=== PATIENT | female | born 1960 | race Caucasian/White ===

== ENCOUNTER 2016-08-06 13:22 | Inpatient (IN) | payer OTHER ==
--- NOTE | 2016-08-06 14:00 | EDPHY ---
HPI/HX/ROS/PE/MDM Narrative: CHIEF COMPLAINT: Abdominal pain, Hematochezia. HISTORY OF PRESENT ILLNESS: The patient is a 55-year-old female presenting with abdominal pain and hematochezia. The patient reports lower abdominal pain and discomfort for the past 12 hours. Around 8 a.m. she started having bloody diarrhea. Earlier in the night she had stool, but now only has bloody liquid. She has associated nausea secondary to the abdominal pain, no associated emesis. She had a low grade fever of 99 at home with chills. She denies chest pain or shortness of breath. Patient has no history of ulcerative colitis. She denies vaginal bleeding. Last menstruation was in March. The patient had a recent colonoscopy and was found to have diverticula. REVIEW OF SYSTEMS: Aside from elements discussed in the HPI, a comprehensive 10-point review of systems was reviewed and is negative. PAST MEDICAL HISTORY: Right oophorectomy, tubal ligation. SOCIAL HISTORY: Nonsmoker. Drinks red wine. Occasional marijuana use. and PCP are at bedside. VITAL SIGNS: Reviewed by me GENERAL: Well-developed, well-nourished, reporting moderated discomfort in abdomen. Laying on side. HEENT: Atraumatic. Eyes: No icterus, no injection. Mouth: moist mucous membranes. No erythema or lesions. Neck: supple with no adenopathy. LUNGS: Clear to auscultation bilaterally, no wheezes, rhonchi or rales. CARDIAC: Regular rate and rhythm, no rubs, murmurs or gallops. ABDOMEN: Exquisite left sided tenderness with voluntary guarding in left lower quadrant. RECTAL: No hemorrhoids, no fissures. Red blood on glove. No stool in vault. BACK: No CVA tenderness. EXTREMITIES: No trauma. No edema. Range of motion is normal throughout. NEURO: Alert and oriented, grossly nonfocal. SKIN: Warm and dry, no rash. PSYCHIATRIC: Normal mentation, no agitation. Portions of this note were transcribed by a medical records field technician. I personally performed a history, physical exam, medical decision making, and confirmed accuracy of information the transcribed note. ED Course: Patient presents with 12 hours of severe abdominal pain and hematochezia that started at 8 a.m. On rectal exam patient does not have hemorrhoids or fissures. There is red blood on the glove, no stool. Plan to check for sepsis due to history of recent fever. Blood work and lactic acid were ordered. IV was established, patient received IV Dilaudid and Zofran for pain and nausea. Patient has a white count of 17,000. Chemistries are essentially normal. CT scan is significant for colitis, no diverticulitis. Sepsis Evaluation Note: The patient presents to the ED with potential infection identified as diverticulitis. The patient did [not] have evidence of SIRS. Patient did not have evidence of end-organ dysfunction. Plan to admit the patient. I discussed this with the patient. She agrees with the plan. She is feeling better after the Dilaudid. I spoke to the hospitalist, the patient will be admitted to Dr. Ferguson. MDM: After obtaining the patients history and performing an examination, differential diagnosis considered included but was not limited to diverticulitis , colitis, diverticular bleeding, c difficle, gi hemorrhage, colon cancer, upper gi hemorrhage. - Data Points Imaging Results: Imaging Impressions Abdomen CT 08/06/16 14:05 Impression: 1. Diffuse thickening of the descending and proximal sigmoid colon suggesting colitis, with a small amount of pericolic fluid with no visible perforation or abscess. Diverticula are present in the region, however, the extent is suggestive of colitis. 2. Lung nodules measuring up to 5 mm. In a nonsmoker with no cancer history, no further follow up is recommended per Fleischner Society guidelines. In a smoker or a patient with a history of cancer, follow up CT is considered optional in 12 months. 3. Additional findings as above. Findings discussed with Ave Aguillon MD, 08/06/2016 at 1614 hours. Imaging: Discussed imaging studies w/ inbound call center agent Radiologist Laboratory Results: Laboratory Results 08/06/16 14:05 08/06/16 14:05 08/06/16 08/06/16 08/06/16 16:38 14:08 14:05 WBC RBC Hgb Hct MCV MCH MCHC RDW Plt Count MPV Neut % (Auto) Lymph % (Auto) [place] % (Auto) Eos % (Auto) Baso % (Auto) Nucleat RBC Rel Count Absolute Neuts (auto) Absolute Lymphs (auto) Absolute Monos (auto) Absolute Eos (auto) Absolute Basos (auto) Absolute Nucleated RBC Immature Gran % Immature Gran # PT 13.3 SEC SEC (12.0-15.0) INR 1.02 (0.83-1.16) APTT 22.9 SEC L SEC (23.0-38.0) VBG Lactic Acid 1.4 mmol/L mmol/L (0.7-2.1) Sodium Potassium Chloride Carbon Dioxide Anion Gap BUN Creatinine Estimated GFR Glucose Calcium Total Bilirubin Conjugated Bilirubin Unconjugated Bilirubin AST ALT Alkaline Phosphatase Total Protein Albumin Lipase Urine Color PALE YELLOW Urine Appearance CLEAR Urine pH 5.0 (5.0-7.5) Ur Specific Meta > 1.035 H (1.002-1.030) Urine Protein NEGATIVE (NEGATIVE) Urine Ketones 1+ H (NEGATIVE) Urine Blood NEGATIVE (NEGATIVE) Urine Nitrate NEGATIVE (NEGATIVE) Urine Bilirubin NEGATIVE (NEGATIVE) Urine Urobilinogen NEGATIVE EU EU (0.2-1.0) Ur Leukocyte Esterase NEGATIVE (NEGATIVE) Urine Glucose NEGATIVE (NEGATIVE) 08/06/16 08/06/16 14:05 14:05 WBC 17.10 10^3/uL H 10^3/uL (3.80-9.50) RBC 5.11 10^6/uL 10^6/uL (4.18-5.33) Hgb 12.2 g/dL L g/dL (12.6-16.3) Hct 38.7 % % (38.0-47.0) MCV 75.7 fL L fL (81.5-99.8) MCH 23.9 pg L pg (27.9-34.1) MCHC 31.5 g/dL L g/dL (32.4-36.7) RDW 15.7 % H % (11.5-15.2) Plt Count 333 10^3/uL 10^3/uL (150-400) MPV 10.5 fL fL (8.7-11.7) Neut % (Auto) 90.1 % H % (39.3-74.2) Lymph % (Auto) 5.3 % L % (15.0-45.0) [place] % (Auto) 3.7 % L % (4.5-13.0) Eos % (Auto) 0.0 % L % (0.6-7.6) Baso % (Auto) 0.3 % % (0.3-1.7) Nucleat RBC Rel Count 0.0 % % (0.0-0.2) Absolute Neuts (auto) 15.40 10^3/uL H 10^3/uL (1.70-6.50) Absolute Lymphs (auto) 0.90 10^3/uL L 10^3/uL (1.00-3.00) Absolute Monos (auto) 0.64 10^3/uL 10^3/uL (0.30-0.80) Absolute Eos (auto) 0.00 10^3/uL L 10^3/uL (0.03-0.40) Absolute Basos (auto) 0.05 10^3/uL 10^3/uL (0.02-0.10) Absolute Nucleated RBC 0.00 10^3/uL 10^3/uL (0-0.01) Immature Gran % 0.6 % % (0.0-1.1) Immature Gran # 0.11 10^3/uL H 10^3/uL (0.00-0.10) PT INR APTT VBG Lactic Acid Sodium 139 mEq/L mEq/L (134-144) Potassium 4.3 mEq/L mEq/L (3.5-5.2) Chloride 102 mEq/L mEq/L (97-110) Carbon Dioxide 24 mEq/l mEq/l (22-31) Anion Gap 13 mEq/L mEq/L (8-16) BUN 10 mg/dL mg/dL (7-23) Creatinine 0.7 mg/dL mg/dL (0.6-1.0) Estimated GFR > 60 Glucose 95 mg/dL mg/dL (70-100) Calcium 9.6 mg/dL mg/dL (8.5-10.4) Total Bilirubin 0.8 mg/dL mg/dL (0.1-1.4) Conjugated Bilirubin 0.4 mg/dL mg/dL (0.0-0.5) Unconjugated Bilirubin 0.4 mg/dL mg/dL (0.0-1.1) AST 39 IU/L IU/L (14-46) ALT 34 IU/L IU/L (9-52) Alkaline Phosphatase 83 IU/L IU/L (38-126) Total Protein 7.5 g/dL g/dL (6.3-8.2) Albumin 4.6 g/dL g/dL (3.5-5.0) Lipase 64.0 IU/L IU/L (23-300) Urine Color Urine Appearance Urine pH Ur Specific Meta Urine Protein Urine Ketones Urine Blood Urine Nitrate Urine Bilirubin Urine Urobilinogen Ur Leukocyte Esterase Urine Glucose Medications Given: Discontinued Medications Hydromorphone HCl (Dilaudid) 1 mg IVP EDNOW ONE Stop: 08/06/16 14:06 Last Admin: 08/06/16 14:28 Dose: 1 mg Hydromorphone HCl (Dilaudid) 1 mg IVP EDNOW ONE Stop: 08/06/16 16:54 Last Admin: 08/06/16 17:03 Dose: Not Given Sodium Chloride (Ns) 1,500 mls @ 3,000 mls/hr 30 ml/kg infuse over 30 min ( 1500 ml) IV EDNOW ONE Stop: 08/06/16 14:35 Last Admin: 08/06/16 14:28 Dose: 1,500 mls Ondansetron HCl (Zofran) 4 mg IVP EDNOW ONE Stop: 08/06/16 14:06 Last Admin: 08/06/16 14:30 Dose: 4 mg General Time Seen by Provider: 08/06/16 13:49 Initial Vital Signs: Initial Vital Signs Temperature (C) 36.8 C 08/06/16 13:24 Heart Rate 72 08/06/16 13:24 Respiratory Rate 18 08/06/16 13:24 Blood Pressure 128/74 H 08/06/16 13:24 O2 Sat (%) 96 08/06/16 13:24 O2 Delivery Mode Room Air O2 (L/minute) 2 Allergies/Adverse Reactions: No Known Allergies Allergy (Unverified 08/06/16 13:24) Home Medications: Medication Instructions Recorded Herbals/Supplements -Info Only 1 ea PO DAILY 08/06/16 Zolpidem Tartrate [Ambien 10 mg] 5 - 10 mg PO HS PRN 08/06/16 Departure - Departure Disposition: [facility] Clinical Impression: Abdominal pain, Colitis, Lower GI hemorrhage, Diarrhea Condition: Good Report Scribed for: Ave Aguillon Report Scribed by: Lakeisha Ac Date of Report: 08/06/16 Time of Report: 14:06
[2016-08-06] MEDS ORDERED: ONDANSETRON 4 MG/2 ML VIAL ONE ×2 (14:02→16:47)
[2016-08-06] MEDS ORDERED: HYDROmorphONE/DILAUDID 1 MG/ML SYR ONE ×2 (14:02→16:44)
[2016-08-06] MEDS ORDERED: ONDANSETRON 4 MG/2 ML VIAL IVP ONE ×2 (14:05→16:53)
[2016-08-06] MEDS ORDERED: HYDROmorphONE/DILAUDID 1 MG/ML SYR IVP ONE ×3 (14:05→17:05)
[2016-08-06] MEDS ORDERED: NS 1,500 ML IV ONE (14:06)
[2016-08-06 14:16] LABS: % IMMATURE GRANULYOCYTES 0.6 % (0.0-1.1); ABSOLUTE IMMATURE GRANULOCYTES 0.11 10^3/uL (0.00-0.10); ADD DIFF? NO; ADD MORPH? NO; ADD SCAN? NO; ATYPICAL LYMPHOCYTE FLAG 0 (0-99); FRAGMENT RBC FLAG 0 (0-99); HEMATOCRIT 38.7 % (38.0-47.0); HEMOGLOBIN 12.2 g/dL (12.6-16.3); LEFT SHIFT FLG 20 (0-99); LIPEMIA HEMOLYSIS FLAG 80 (0-99); MEAN CELL HEMOGLOBIN 23.9 pg (27.9-34.1); MEAN CELL HEMOGLOBIN CONCENTR. 31.5 g/dL (32.4-36.7); MEAN CELL VOLUME 75.7 fL (81.5-99.8); MEAN PLATELET VOLUME 10.5 fL (8.7-11.7); PLATELET CLUMPS FLAG 10 (0-99); PLATELET COUNT 333 10^3/uL (150-400); RED BLOOD CELL COUNT 5.11 10^6/uL (4.18-5.33); RED CELL DISTRIBUTION WIDTH 15.7 % (11.5-15.2)
[2016-08-06 14:26] LABS: APTT 22.9 SEC (23.0-38.0)
[2016-08-06 14:35] LABS: INR 1.02 (0.83-1.16); PROTIME(PATIENT) 13.3 SEC (12.0-15.0)
[2016-08-06] MEDS ORDERED: IOPAMIDOL (ISOVUE-300) 100 ML BTL IV ONE (14:41)
[2016-08-06 14:42] LABS: ALANINE AMINOTRANSFERASE 34 IU/L (9-52); ALBUMIN 4.6 g/dL (3.5-5.0); ALKALINE PHOSPHATASE 83 IU/L (38-126); ANION GAP 13 mEq/L (8-16); ASPARTATE AMINOTRANSFERASE 39 IU/L (14-46); BILIRUBIN,TOTAL 0.8 mg/dL (0.1-1.4); BILIRUBIN-CONJUGATED 0.4 mg/dL (0.0-0.5); BILIRUBIN-UNCONJUGATED 0.4 mg/dL (0.0-1.1); CALCIUM 9.6 mg/dL (8.5-10.4); CARBON DIOXIDE 24 mEq/l (22-31); CHLORIDE 102 mEq/L (97-110); CREATININE 0.7 mg/dL (0.6-1.0); GLOMERULAR FILTRATION RATE > 60; GLUCOSE 95 mg/dL (70-100); POTASSIUM 4.3 mEq/L (3.5-5.2); SODIUM 139 mEq/L (134-144); TOTAL PROTEIN 7.5 g/dL (6.3-8.2)
[2016-08-06 16:47] LABS: COLOR PALE YELLOW; LEUKOCYTE ESTERASE,URINE NEGATIVE (NEGATIVE); NITRITE,URINE NEGATIVE (NEGATIVE)
[2016-08-06] MEDS ORDERED: ONDANSETRON DISINTEGRATING 4 MG TAB PO PRN (17:27)
[2016-08-06] MEDS ORDERED: ACETAMINOPHEN 325 MG TAB PO PRN (17:27)
[2016-08-06] MEDS ORDERED: IBUPROFEN 600 MG TAB PO PRN (17:27)
--- NOTE | 2016-08-06 18:15 | GHP ---
[f rep st] HISTORY AND PHYSICAL DATE OF ADMISSION: 08/06/2016 CHIEF COMPLAINT: Abdominal pain and bloody diarrhea. HISTORY: This is a 55-year-old female with essentially no past medical history who presents with se veral days of left lower quadrant abdominal pain along with diarrhea that then progressed to be bloo dy. She notes she has had significant abdominal cramping since yesterday and then over the course o f the night, what began as diarrhea progressed to bloody diarrhea and then to simply passage of most ly blood. She had a low-grade fever at home with associated chills. She has not had any vomiting b ut has had some nausea. She has had no chest pain, no shortness of breath. She has had no urinary changes. She has never had prior similar symptoms. She has not been around anybody sick. She has not had any recent travel. PAST MEDICAL HISTORY: Denies. PAST SURGICAL HISTORY: Right oophorectomy and tubal ligation. SOCIAL HISTORY: The patient is a nonsmoker. She drinks wine socially. She uses marijuana occasion ally. She is and has 2 sons. REVIEW OF SYSTEMS: 10-point review of systems obtained and negative except as per HPI. HOME MEDICATIONS: None. ALLERGIES: None. PHYSICAL EXAMINATION: VITAL SIGNS: BP 100/61, heart rate 61, respiratory rate 16, O2 sats 92% on r oom air. Afebrile. GENERAL APPEARANCE: This is a well-developed, well-nourished female. She is a wake and alert. She is in no acute distress. EYES: Anicteric. HENT: Oropharynx clear. CARDIOVA SCULAR: RRR, no MRG. PULMONARY: CTA bilaterally. ABDOMEN: Soft, tenderness to palpation diffuse ly. No rebound or guarding. EXTREMITIES: No clubbing, cyanosis, or edema. SKIN: Warm, dry, well perfused. NEURO/PSYCH: Oriented and appropriate, pleasant. CLINICAL DATA: Labs reviewed and significant for a white blood cell count of 17.1, hematocrit of 38 .7, platelets of 333. Lactic acid is 1.4. Chemistry is completely unremarkable as are liver functi on tests. Urinalysis shows 1+ ketones. Stool occult blood is positive. Abdominal CT personally reviewed and interpreted shows diffuse thickening of the descending and prox imal sigmoid colon suggesting colitis without perforation or abscess. There are nonspecific lung no dules measuring up to 5 mm. ASSESSMENT/PLAN: This is a 55-year-old female with no past medical history presenting with abdomina l pain and bloody diarrhea. CT findings suggestive of colitis. 1. Colitis. This is presumed infectious given the history. She is having significant cramping abd ominal pain along with bloody stool output. A GI pathogen panel has been ordered and is pending. S he will be treated conservatively with IV fluids and antiemetics and opiates as needed. We will hol d off on antibiotics for now given that she is not septic appearing. 2. Hematochezia. Again, this is in the setting of what appears to be an infectious colitis and lik titus secondary to the same. She is hemodynamically stable. Her H and H are within normal limits. W ill trend counts overnight but so long as bleeding does not increase or anemia develop, I do not thi nk she will need further evaluation for this. 3. Leukocytosis in the setting of above. She does not meet sepsis criteria. Will trend overnight. 4. Lung nodules. These are small and nonspecific. Given the patient is a nonsmoker, there is no f urther followup necessary. 5. Disposition, observation status. Patient will need less than 48-hour stay for evaluation and ma nagement of above. 6. Patient is new to my care. Old records reviewed. Summary is as per HPI and past medical histor y. Further history obtained from patient's present at bedside. Care plan reviewed with the ER physician, including plans for GI pathogen panel to be sent. /[id number]/MODL
[2016-08-06] MEDS ORDERED: ZOLPIDEM TARTRATE 5 MG TAB PO PRN (20:29)
[2016-08-06] MEDS: HYDROCODONE/APAP 5/325 TAB PO PRN (21:06)
[2016-08-06] MEDS: NS 1,000 ML IV SCH (22:34)
[2016-08-07] MEDS: HYDROCODONE/APAP 5/325 TAB PO PRN ×4 (03:14→20:57)
[2016-08-07 05:53] LABS: % IMMATURE GRANULYOCYTES 0.3 % (0.0-1.1); ABSOLUTE IMMATURE GRANULOCYTES 0.04 10^3/uL (0.00-0.10); ADD DIFF? NO; ADD MORPH? NO; ADD SCAN? NO; ATYPICAL LYMPHOCYTE FLAG 0 (0-99); FRAGMENT RBC FLAG 0 (0-99); HEMATOCRIT 33.1 % (38.0-47.0); HEMOGLOBIN 10.4 g/dL (12.6-16.3); LEFT SHIFT FLG 50 (0-99); LIPEMIA HEMOLYSIS FLAG 80 (0-99); MEAN CELL HEMOGLOBIN 23.9 pg (27.9-34.1); MEAN CELL HEMOGLOBIN CONCENTR. 31.4 g/dL (32.4-36.7); MEAN CELL VOLUME 75.9 fL (81.5-99.8); MEAN PLATELET VOLUME 10.6 fL (8.7-11.7); PLATELET CLUMPS FLAG 20 (0-99); PLATELET COUNT 266 10^3/uL (150-400); RED BLOOD CELL COUNT 4.36 10^6/uL (4.18-5.33); RED CELL DISTRIBUTION WIDTH 15.7 % (11.5-15.2)
[2016-08-07 06:02] LABS: ANION GAP 4 mEq/L (8-16); CALCIUM 8.4 mg/dL (8.5-10.4); CARBON DIOXIDE 26 mEq/l (22-31); CHLORIDE 108 mEq/L (97-110); CREATININE 0.7 mg/dL (0.6-1.0); GLOMERULAR FILTRATION RATE > 60; GLUCOSE 91 mg/dL (70-100); POTASSIUM 4.2 mEq/L (3.5-5.2); SODIUM 138 mEq/L (134-144)
[2016-08-07] MEDS: NS 1,000 ML IV SCH (08:40)
[2016-08-07 10:33] LABS: % SATURATION 18 % (20-55); TOTAL IRON BINDING CAPACITY 277 ug/dL (260-490)
[2016-08-07 10:59] LABS: FERRITIN - BCH 34.2 ng/mL (6.2-264.0)
--- NOTE | 2016-08-07 12:16 | GCON ---
[f rep st] CONSULTATION CHIEF COMPLAINT: A 55-year-old woman with acute onset of abdominal pain, diarrhea and hematochezia. HISTORY OF PRESENT ILLNESS: This is a very pleasant 55-year-old woman, who has no significant medical history. She has undergone routine screening colonoscopy about 3 weeks ago with finding of mild diverticulosis and a small colon polyp. She was in her usual state of good health until evening. She had sudden onset of abdominal pain and discomfort. This was followed by several episodes of diarrhea. The following morning, she passed several episodes of bright red blood/hematochezia. She had some chills and sweats. She went into the emergency department. She was found to be slightly anemic with a hematocrit of 33.1, but also had an MCV of 75.9. White count was elevated initially at 17,000. Serum chemistries were normal. CT scan showed inflammatory changes from the sigmoid colon to the splenic flexure. She denies any fevers. She has had no similar symptoms in the past. She denies any NSAID use, no recent travel, no one else is sick at home. She has had no prior similar symptoms. She presents to the hospital for further evaluation. PAST MEDICAL HISTORY: Negative. PAST SURGICAL HISTORY: Remarkable for right shoulder surgery last year. MEDICATIONS: None prior to admission. ALLERGIES: No known drug allergies. FAMILY HISTORY: Negative as it pertains to Chief Complaint. SOCIAL HISTORY: Nonsmoker, nondrinker. REVIEW OF SYSTEMS: Negative 10 systems other than mentioned in HPI. PHYSICAL EXAM: VITAL SIGNS: 106/73, pulse 66, respiratory rate 16, 99% sat on room air, 36.8. GENERAL: Very pleasant woman in no acute distress. HEENT: Normocephalic, atraumatic. EOMI. NECK: Supple. No cervical adenopathy. No thyromegaly. Mucous membranes moist. LUNGS: Clear. CARDIAC: Normal S1, S2 without murmur. ABDOMEN: Soft, normal bowel sounds. Tenderness at left abdomen to palpation. EXTREMITIES: Without clubbing, cyanosis, edema. SKIN: Warm, dry, intact. No rashes. PSYCH: Alert and oriented x3. LABORATORY DATA: Serum sodium 138, potassium 4.2, chloride 108, CO2 of 26, BUN of 7, white count of 12.47, hemoglobin 10.4, hematocrit 33.1, MCV of 75.9, platelets of 266, PT of 13.3, INR of 1.02. IMPRESSION: A 55-year-old woman with clinical presentation consistent with acute ischemic colitis. She is also noted to have microcytic anemia, question iron-deficiency anemia. RECOMMENDATIONS: Supportive care. IV hydration. Clear liquid diet. Will check iron studies, iron TIBC, ferritin. Would recommend a flexible sigmoidoscopy tomorrow for mucosal biopsies to document changes of ischemia/ ischemic colitis. If iron deficient, would recommend upper endoscopy for small bowel biopsies for evaluation of microcytic anemia. Rule out celiac disease. We will follow with you. /[id number]/MODL MTDD
--- NOTE | 2016-08-07 14:43 | HOSPPROG ---
Hospitalist Progress Note Assessment/Plan: * colitis * Uncertain etiology but predominance of pain prior to diarrhea more suggestive of ischemic colitis. * Seems to be getting better * Will get flex sig tomorrow to further evaluate * microcytic anemia * Awaiting iron studies * May need upper endoscopy per GI Subjective: Abdominal pain seems to be better. Not having any bowel movements Objective: Vital Signs Temp Pulse Resp BP Pulse Ox 36.8 C 66 16 106/73 99 08/07/16 08:45 08/07/16 08:45 08/07/16 08:45 08/07/16 08:45 08/07/16 08:45 Laboratory Results 08/07/16 05:41 08/07/16 05:41 08/06/16 08/07/16 08/08/16 05:59 05:59 05:59 Intake Total 1500 Output Total 600 400 Balance 900 -400 PT 13.3 SEC (12.0-15.0) 08/06/16 14:05 INR 1.02 (0.83-1.16) 08/06/16 14:[address] Laguna and Dr. Kraus CT personally viewed interpreted - Physical Exam Constitutional: no apparent distress, appears nourished, not in pain Eyes: anicteric sclera, EOMI Ears, Nose, Mouth, Throat: moist mucous membranes, hearing normal, ears appear normal Cardiovascular: regular rate and rhythym, no murmur, rub, or gallop Respiratory: no respiratory distress, no rales or rhonchi, clear to auscultation Gastrointestinal: normoactive bowel sounds, soft, non-tender abdomen, no palpable masses Skin: warm Neurologic: AAOx3 Psychiatric: interacting appropriately, not anxious, not encephalopathic, thought process linear ICD10 Worksheet Patient Problems: Problems Problem Status Onset Colitis Acute
[2016-08-07] MEDS: D5W 1/2 NS W/ 20 KCl/L 1,000 ML IV SCH (15:22)
[2016-08-08 05:04] LABS: % IMMATURE GRANULYOCYTES 0.3 % (0.0-1.1); ABSOLUTE IMMATURE GRANULOCYTES 0.03 10^3/uL (0.00-0.10); ADD DIFF? NO; ADD MORPH? NO; ADD SCAN? NO; ATYPICAL LYMPHOCYTE FLAG 0 (0-99); FRAGMENT RBC FLAG 0 (0-99); HEMATOCRIT 32.4 % (38.0-47.0); LEFT SHIFT FLG 40 (0-99); LIPEMIA HEMOLYSIS FLAG 80 (0-99); MEAN CELL HEMOGLOBIN 23.8 pg (27.9-34.1); MEAN CELL HEMOGLOBIN CONCENTR. 30.9 g/dL (32.4-36.7); MEAN PLATELET VOLUME 10.4 fL (8.7-11.7); PLATELET CLUMPS FLAG 0 (0-99); PLATELET COUNT 240 10^3/uL (150-400); RED BLOOD CELL COUNT 4.21 10^6/uL (4.18-5.33); RED CELL DISTRIBUTION WIDTH 15.8 % (11.5-15.2)
[2016-08-08] MEDS: HYDROCODONE/APAP 5/325 TAB PO PRN ×3 (05:09→18:16)
[2016-08-08] MEDS: D5W 1/2 NS W/ 20 KCl/L 1,000 ML IV SCH (05:15)
[2016-08-08 05:21] LABS: ALANINE AMINOTRANSFERASE 21 IU/L (9-52); ALBUMIN 3.1 g/dL (3.5-5.0); ALKALINE PHOSPHATASE 49 IU/L (38-126); ANION GAP 5 mEq/L (8-16); ASPARTATE AMINOTRANSFERASE 25 IU/L (14-46); BILIRUBIN,TOTAL 0.7 mg/dL (0.1-1.4); CALCIUM 8.4 mg/dL (8.5-10.4); CARBON DIOXIDE 29 mEq/l (22-31); CHLORIDE 107 mEq/L (97-110); CREATININE 0.7 mg/dL (0.6-1.0); GLOMERULAR FILTRATION RATE > 60; GLUCOSE 93 mg/dL (70-100); POTASSIUM 4.1 mEq/L (3.5-5.2); SODIUM 141 mEq/L (134-144); TOTAL PROTEIN 5.5 g/dL (6.3-8.2)
[2016-08-08] MEDS ORDERED: MIDAZOLAM 2 MG/2 ML VIAL ONE (10:27)
[2016-08-08] MEDS ORDERED: fentaNYL 100 MCG/2 ML INJ ONE (10:36)
--- NOTE | 2016-08-08 11:34 | GPN ---
[f rep st] PROCEDURE NOTE PROCEDURE PERFORMED: 1. Esophagogastroduodenoscopy with small-bowel biopsies. 2. Flexible sigmoidoscopy with left colon biopsies. PREOPERATIVE DIAGNOSES: 1. Microcytic anemia, rule out celiac disease. 2. Hematochezia, abdominal pain, CT finding with inflamed left colon, rule out ischemic colitis. POSTOPERATIVE DIAGNOSES: 1. Status post small bowel biopsy, rule out celiac disease. 2. Left-sided ulcerative changes consistent with ischemic colitis, status post biopsy. INDICATIONS: A 55-year-old woman who presented to the hospital with acute onset of abdominal pain, left-sided, with diarrhea and hematochezia. The patient does have a history of diverticulosis. She had a CT scan that showed thickening colitis, inflamed colon involving the left colon from sigmoid to splenic flexure. Clinical presentation was consistent with ischemic colitis. She was also found to be anemic with microcytic indices. Presents today for upper endoscopy for small bowel biopsies, and flexible sigmoidoscopy for mucosal biopsies to document any ischemic changes. Physical exam: Vital signs stable. Lungs clear. Cardiac exam: Normal S1 and S2, without murmur. Permit: The procedure was explained to the patient. The risks and benefits of the procedure were o utlined to the patient. Informed consent was obtained. PREOPERATIVE MEDICATIONS: General anesthesia. FINDINGS OF PROCEDURE: The patient was placed in the left lateral decubitus position. GIF-180 videoscope assessed the oropharynx under direct visualization. The proximal esophagus and e sophagus were normal. The GE junction was at 38 cm. The endoscope was passed in the stomach. Norm al-appearing antrum, body. Endoscope was passed to the first and second portions of the duodenum. Duodenal sweep was normal. Biopsies were obtained in the second and first portion of the duodenum t o evaluate for any evidence of villous atrophy or changes consistent with celiac disease. The endoscope was brought back in the stomach. Retroflexed view of the stomach revealed a normal an gularis fundus and cardia, and the scope was then withdrawn. The patient was turned. Rectal exam was performed. No masses felt in the rectal vault. The endoscope was then passed into the rectum under direct visualization to the left colon and desce nding colon. There was marked ulceration and edema that was patchy, consistent with ischemic change s. Random biopsies obtained in the left colon. There were mild diverticular changes in the sigmoid colon. The distal sigmoid colon and rectum appeared normal, with normal-appearing mucosa. Retrofl exed view of the rectum was unremarkable. The endoscope was un-retroflexed and withdrawn. IMPRESSION: 1. Normal upper endoscopy status post small bowel biopsy to rule out celiac disease. 2. Flexible sigmoidoscopy with mucosal changes and ulceration in the left colon, consistent with is chemic colitis, status post biopsies. RECOMMENDATIONS: Supportive care. IV hydration. Advance diet as tolerated to a low-fiber diet. A wait biopsy results. /[id number]/MODL
--- NOTE | 2016-08-08 13:34 | HOSPPROG ---
Hospitalist Progress Note Assessment/Plan: * ischemic colitis * Confirmed by flex sig * Advance diet * Possibly discharge tomorrow * iron deficiency microcytic anemia * Upper GI did not show any obvious lesions and biopsy done for celiac * possible discharge tomorrow Subjective: Abdominal pain is improving. Objective: Vital Signs Temp Pulse Resp BP Pulse Ox 36.6 C 55 L 14 92/60 L 100 08/08/16 11:17 08/08/16 11:17 08/08/16 11:25 08/08/16 11:17 08/08/16 11:25 Laboratory Results 08/08/16 04:53 08/08/16 04:53 08/07/16 08/08/16 08/09/16 05:59 05:59 05:59 Intake Total 3182 800 Output Total 0 Balance 3182 800 PT 13.3 SEC (12.0-15.0) 08/06/16 14:05 INR 1.02 (0.83-1.16) 08/06/16 14:05 - Physical Exam Constitutional: no apparent distress, appears nourished, not in pain Eyes: anicteric sclera, EOMI Ears, Nose, Mouth, Throat: moist mucous membranes, hearing normal, ears appear normal Cardiovascular: regular rate and rhythym, no murmur, rub, or gallop Respiratory: no respiratory distress, no rales or rhonchi, clear to auscultation Gastrointestinal: normoactive bowel sounds, tenderness (Mild tenderness), guarding, rebound Skin: warm Neurologic: AAOx3 Psychiatric: interacting appropriately, not anxious, not encephalopathic, thought process linear ICD10 Worksheet Patient Problems: Problems Problem Status Onset Colitis Acute
[2016-08-09] MEDS: HYDROCODONE/APAP 5/325 TAB PO PRN ×2 (03:53→14:21)
[2016-08-09] MEDS ORDERED: NS 1,000 ML IV ONE (09:14)
--- NOTE | 2016-08-09 09:16 | HOSPPROG ---
Hospitalist Progress Note Assessment/Plan: # colitis, likely ischemic - not ready for dc - place on tele while here - supportive care # Fe defic anemia - bx foe celiac pending ## discussed with Dr Kraus - agrees to keep inpatient for supportive care chart reviewed CT reviewed Subjective: abd still very tender; not eating much Objective: Vital Signs Temp Pulse Resp BP Pulse Ox 36.6 C 59 L 17 98/63 L 92 08/09/16 08:00 08/09/16 08:00 08/09/16 08:00 08/09/16 08:00 08/09/16 08:00 Laboratory Results 08/08/16 04:53 08/08/16 04:53 08/08/16 08/09/16 08/10/16 05:59 05:59 05:59 Intake Total 3182 2510 Output Total 300 Balance 3182 2210 PT 13.3 SEC (12.0-15.0) 08/06/16 14:05 INR 1.02 (0.83-1.16) 08/06/16 14:05 - Physical Exam Constitutional: no apparent distress, appears nourished Cardiovascular: regular rate and rhythym, no murmur, rub, or gallop Respiratory: no respiratory distress, no rales or rhonchi, clear to auscultation Gastrointestinal: normoactive bowel sounds, other (soft but very TTP, L sided; no masses) ICD10 Worksheet Patient Problems: Problems Problem Status Onset Colitis Acute
--- NOTE | 2016-08-09 13:00 | SOAPPROG ---
SOAP Progress Note Assessment/Plan: Assessment: Ischemic Colitis. Still with LLQ pain with eating. Plan: 1. Supportive care. 2. Await biopsy results. 3. I would recommend a hematology consult as an outpatient to exclude hypercoagulability. 4. Potter of Bentyl 10 - 20 mg every six hours (prior to meal) 08/09/16 12:50 Subjective: CC: Ischemic Colitis Improved but still c/o crampy abdominal pain with meals. Objective: Vital Signs Temp Pulse Resp BP Pulse Ox 36.3 C 60 12 113/73 97 08/09/16 11:04 08/09/16 11:04 08/09/16 11:04 08/09/16 11:04 08/09/16 11:04 Laboratory Results 08/08/16 04:53 08/08/16 04:53 08/08/16 08/09/16 08/10/16 05:59 05:59 05:59 Intake Total 3182 2510 Output Total 300 Balance 3182 2210 PT 13.3 SEC (12.0-15.0) 08/06/16 14:05 INR 1.02 (0.83-1.16) 08/06/16 14:05 Generic Name Dose Route Start Last Admin Trade Name Freq PRN Reason Stop Dose Admin Acetaminophen 650 mg 08/06/16 17:27 Tylenol PO 02/02/17 17:26 Q6HRS PRN Pain, Mild/Fever, Can Take PO Hydrocodone Bitart/Acetaminophen 2 tab 08/06/16 17:46 08/09/16 03:53 [place] 5/325 PO 08/16/16 17:45 2 tab Q4HRS PRN Administration Pain, Moderate Able to Take PO Ibuprofen 600 mg 08/06/16 17:27 Motrin PO 02/02/17 17:26 Q8HRS PRN Pain, Inflammatory or H/A Ondansetron HCl 4 mg 08/06/16 17:27 08/07/16 20:58 Zofran Odt PO 02/02/17 17:26 4 mg Q4HRS PRN Administration Nausea/Vomiting, Use 1st Zolpidem Tartrate 5 - 10 mg 08/06/16 20:29 08/08/16 21:12 Ambien PO 02/02/17 20:28 5 mg HS PRN Administration Sleep/Insomnia Discontinued Medications Generic Name Dose Route Start Last Admin Trade Name Warren PRN Reason Stop Dose Admin Fentanyl Confirm 08/08/16 10:36 Sublimaze Administered 08/08/16 10:37 Dose 100 mcg .ROUTE .STK-MED ONE Hydromorphone HCl Confirm 08/06/16 14:02 Dilaudid Administered 08/06/16 14:03 Dose 1 mg .ROUTE .STK-MED ONE Hydromorphone HCl 1 mg 08/06/16 14:05 08/06/16 14:28 Dilaudid IVP 08/06/16 14:06 1 mg EDNOW ONE Administration Hydromorphone HCl Confirm 08/06/16 16:44 Dilaudid Administered 08/06/16 16:45 Dose 1 mg .ROUTE .STK-MED ONE Hydromorphone HCl 1 mg 08/06/16 16:53 08/06/16 17:03 Dilaudid IVP 08/06/16 16:54 Not Given EDNOW ONE Hydromorphone HCl 1 mg 08/06/16 17:05 08/06/16 17:10 Dilaudid IVP 08/06/16 17:06 1 mg EDNOW ONE Administration Sodium Chloride 1,500 mls @ 3,000 mls/hr 08/06/16 14:06 08/06/16 14:28 Ns 30 ml/kg infuse over 30 min (1500 ml) 08/06/16 14:35 1,500 mls IV Administration EDNOW ONE Sodium Chloride 1,000 mls @ 125 mls/hr 08/06/16 17:30 08/07/16 08:40 Ns IV 02/02/17 17:29 1,000 mls CONT PERLA Administration Potassium Chloride/Dextrose/Sod Cl 1,000 mls @ 75 mls/hr 08/07/16 11:00 08/08 05:15 D5w 1/2 Ns W/ 20 Kcl/L IV 02/03/17 10:59 1,000 mls CONT PERLA Administration Sodium Chloride 1,000 mls @ 3,000 mls/hr 08/09/16 09:14 08/09/16 10:06 Ns IV 08/09/16 09:33 1,000 mls ONCE ONE Administration Iopamidol Confirm 08/06/16 14:41 Isovue-300 Administered 08/06/16 14:42 Dose 100 ml IV .STK-MED ONE Midazolam HCl Confirm 08/08/16 10:27 Versed Administered 08/08/16 10:28 Dose 2 mg .ROUTE .STK-MED ONE Morphine Sulfate 6 mg 08/06/16 17:04 Morphine IVP 08/06/16 17:05 EDNOW ONE Ondansetron HCl Confirm 08/06/16 14:02 Zofran Administered 08/06/16 14:03 Dose 4 mg .ROUTE .STK-MED ONE Ondansetron HCl 4 mg 08/06/16 14:05 08/06/16 14:30 Zofran IVP 08/06/16 14:06 4 mg EDNOW ONE Administration Ondansetron HCl Confirm 08/06/16 16:47 Zofran Administered 08/06/16 16:48 Dose 4 mg .ROUTE .STK-MED ONE Ondansetron HCl 4 mg 08/06/16 16:53 08/06/16 17:10 Zofran IVP 08/06/16 16:54 4 mg EDNOW ONE Administration Physical Exam - Physical Exam General Appearance: alert, no apparent distress Respiratory: lungs clear Cardiac/Chest: regular rate, rhythm Abdomen: normal bowel sounds, soft, other (tenderness llq with palpation) Skin: normal color, warm/dry Neuro/Psych: no motor/sensory deficits, alert, normal mood/affect, oriented x 3 ICD10 Worksheet Patient Problems: Problems Problem Status Onset Colitis Acute
[2016-08-09] MEDS: DICYCLOMINE 10 MG CAP PO SCH ×2 (15:35→20:38)
[2016-08-10 05:27] LABS: % IMMATURE GRANULYOCYTES 0.4 % (0.0-1.1); ABSOLUTE IMMATURE GRANULOCYTES 0.03 10^3/uL (0.00-0.10); ADD DIFF? NO; ADD MORPH? NO; ADD SCAN? NO; ATYPICAL LYMPHOCYTE FLAG 10 (0-99); FRAGMENT RBC FLAG 0 (0-99); HEMATOCRIT 34.6 % (38.0-47.0); HEMOGLOBIN 10.6 g/dL (12.6-16.3); LEFT SHIFT FLG 10 (0-99); LIPEMIA HEMOLYSIS FLAG 80 (0-99); MEAN CELL HEMOGLOBIN 23.9 pg (27.9-34.1); MEAN CELL HEMOGLOBIN CONCENTR. 30.6 g/dL (32.4-36.7); MEAN CELL VOLUME 77.9 fL (81.5-99.8); MEAN PLATELET VOLUME 11.1 fL (8.7-11.7); PLATELET CLUMPS FLAG 0 (0-99); PLATELET COUNT 287 10^3/uL (150-400); RED BLOOD CELL COUNT 4.44 10^6/uL (4.18-5.33); RED CELL DISTRIBUTION WIDTH 15.4 % (11.5-15.2)
[2016-08-10] MEDS: DICYCLOMINE 10 MG CAP PO SCH ×2 (05:28→12:11)
[2016-08-10 06:08] LABS: ANION GAP 9 mEq/L (8-16); CALCIUM 9.2 mg/dL (8.5-10.4); CARBON DIOXIDE 27 mEq/l (22-31); CHLORIDE 106 mEq/L (97-110); CREATININE 0.7 mg/dL (0.6-1.0); GLOMERULAR FILTRATION RATE > 60; GLUCOSE 86 mg/dL (70-100); POTASSIUM 4.7 mEq/L (3.5-5.2); SODIUM 142 mEq/L (134-144)
[2016-08-10] MEDS: HYDROCODONE/APAP 5/325 TAB PO PRN (07:34)
[2016-08-10 08:09] VITALS: TEMP 98.4
[2016-08-10 11:41] LABS: INR 1.02 (0.83-1.16); PROTIME(PATIENT) 13.3 SEC (12.0-15.0)
[2016-08-10 11:42] LABS: APTT 25.8 SEC (23.0-38.0)
[2016-08-10 12:00] VITALS: BP 110/70; PULSE 60; RESP 16; O2SAT 97
--- NOTE | 2016-08-10 12:26 | SOAPPROG ---
SOAP Progress Note Assessment/Plan: Assessment: Ischemic Colitis. Patient significantly improved. Dicyclomine helping with abdominal cramping. Plan: 1. Biopsies still pending. 2. Diet as tolerated. low fiber 3. Ok for discharge 08/10/16 12:23 Subjective: CC: Abdominal pain and hematochezia Patient with normal small stool this am, tolerating PO. Pain much improved. Objective: Vital Signs Temp Pulse Resp BP Pulse Ox 36.9 C 60 16 110/70 97 08/10/16 11:58 08/10/16 11:58 08/10/16 11:58 08/10/16 11:58 08/10/16 11:58 Laboratory Results 08/10/16 04:53 08/10/16 04:53 08/09/16 08/10/16 08/11/16 05:59 05:59 05:59 Intake Total 2510 500 Output Total 300 Balance 2210 500 PT 13.3 SEC (12.0-15.0) 08/10/16 11:22 INR 1.02 (0.83-1.16) 08/10/16 11:22 Generic Name Dose Route Start Last Admin Trade Name Freq PRN Reason Stop Dose Admin Acetaminophen 650 mg 08/06/16 17:27 Tylenol PO 02/02/17 17:26 Q6HRS PRN Pain, Mild/Fever, Can Take PO Hydrocodone Bitart/Acetaminophen 2 tab 08/06/16 17:46 08/10/16 07:34 [place] 5/325 PO 08/16/16 17:45 1 tab Q4HRS PRN Administration Pain, Moderate Able to Take PO Dicyclomine HCl 10 mg 08/09/16 16:00 08/10/16 05:28 Bentyl PO 02/05/17 15:59 10 mg QID PERLA Administration Ibuprofen 600 mg 08/06/16 17:27 Motrin PO 02/02/17 17:26 Q8HRS PRN Pain, Inflammatory or H/A Ondansetron HCl 4 mg 08/06/16 17:27 08/07/16 20:58 Zofran Odt PO 02/02/17 17:26 4 mg Q4HRS PRN Administration Nausea/Vomiting, Use 1st Zolpidem Tartrate 5 - 10 mg 08/06/16 20:29 08/08/16 21:12 Ambien PO 02/02/17 20:28 5 mg HS PRN Administration Sleep/Insomnia Discontinued Medications Generic Name Dose Route Start Last Admin Trade Name Warren PRN Reason Stop Dose Admin Fentanyl Confirm 08/08/16 10:36 Sublimaze Administered 08/08/16 10:37 Dose 100 mcg .ROUTE .STK-MED ONE Hydromorphone HCl Confirm 08/06/16 14:02 Dilaudid Administered 08/06/16 14:03 Dose 1 mg .ROUTE .STK-MED ONE Hydromorphone HCl 1 mg 08/06/16 14:05 08/06/16 14:28 Dilaudid IVP 08/06/16 14:06 1 mg EDNOW ONE Administration Hydromorphone HCl Confirm 08/06/16 16:44 Dilaudid Administered 08/06/16 16:45 Dose 1 mg .ROUTE .STK-MED ONE Hydromorphone HCl 1 mg 08/06/16 16:53 08/06/16 17:03 Dilaudid IVP 08/06/16 16:54 Not Given EDNOW ONE Hydromorphone HCl 1 mg 08/06/16 17:05 08/06/16 17:10 Dilaudid IVP 08/06/16 17:06 1 mg EDNOW ONE Administration Sodium Chloride 1,500 mls @ 3,000 mls/hr 08/06/16 14:06 08/06/16 14:28 Ns 30 ml/kg infuse over 30 min (1500 ml) 08/06/16 14:35 1,500 mls IV Administration EDNOW ONE Sodium Chloride 1,000 mls @ 125 mls/hr 08/06/16 17:30 08/07/16 08:40 Ns IV 02/02/17 17:29 1,000 mls CONT PERLA Administration Potassium Chloride/Dextrose/Sod Cl 1,000 mls @ 75 mls/hr 08/07/16 11:00 08/08 05:15 D5w 1/2 Ns W/ 20 Kcl/L IV 02/03/17 10:59 1,000 mls CONT PERLA Administration Sodium Chloride 1,000 mls @ 3,000 mls/hr 08/09/16 09:14 08/09/16 10:06 Ns IV 08/09/16 09:33 1,000 mls ONCE ONE Administration Iopamidol Confirm 08/06/16 14:41 Isovue-300 Administered 08/06/16 14:42 Dose 100 ml IV .STK-MED ONE Midazolam HCl Confirm 08/08/16 10:27 Versed Administered 08/08/16 10:28 Dose 2 mg .ROUTE .STK-MED ONE Morphine Sulfate 6 mg 08/06/16 17:04 Morphine IVP 08/06/16 17:05 EDNOW ONE Ondansetron HCl Confirm 08/06/16 14:02 Zofran Administered 08/06/16 14:03 Dose 4 mg .ROUTE .STK-MED ONE Ondansetron HCl 4 mg 08/06/16 14:05 08/06/16 14:30 Zofran IVP 08/06/16 14:06 4 mg EDNOW ONE Administration Ondansetron HCl Confirm 08/06/16 16:47 Zofran Administered 08/06/16 16:48 Dose 4 mg .ROUTE .STK-MED ONE Ondansetron HCl 4 mg 08/06/16 16:53 08/06/16 17:10 Zofran IVP 08/06/16 16:54 4 mg EDNOW ONE Administration Physical Exam - Physical Exam General Appearance: alert, no apparent distress Respiratory: lungs clear, normal breath sounds Cardiac/Chest: regular rate, rhythm Abdomen: normal bowel sounds, non-tender, soft Skin: normal color, warm/dry Neuro/Psych: no motor/sensory deficits, alert, normal mood/affect ICD10 Worksheet Patient Problems: Problems Problem Status Onset Abdominal pain Acute Colitis Acute Colitis Acute Diarrhea Acute Lower GI hemorrhage Acute
--- NOTE | 2016-08-10 14:40 | GDS ---
[f rep st] DISCHARGE SUMMARY DIAGNOSES: 1. Suspected ischemic colitis. 2. Iron-deficiency anemia. HOSPITAL COURSE: A 55-year-old female who presented with abdominal pain. CT showed evidence of col itis. This was left-sided. She underwent a flexible sigmoidoscopy which showed significant left-si ded colitis, most consistent with ischemic colitis. GI PCR came back negative. Dr. Kraus with GI has been involved in her care. Clinically, she has improved and on the day of discharge has eaten a full meal with improving abdominal pain, though she does have some. She will be discharged with Angy cabezas as well as Glory. I have discussed this with her primary care physician, Dr. Laguna. Her ongoing care is somewhat complicated by the fact that she plans to move to [place] within the next . Pending at the time of discharge is a hypercoagulable workup; she should follow up with Hematology. I have given her Dr. Gonzales's name if she chooses to stay here. She should also follow up with Card iology for an event monitor. I have not set her up with this on discharge as she does not plan to [facility]. She should also follow up with GI; I have given her Dr. Kraus's name should she papa in here. She is aware of all these pending issues and need for followup. BILLING: I spent more than 30 minutes on the day of discharge coordinating care. /[id number]/MODL
[2016-08-11 13:58] LABS: PROTEIN C ACTIVITY 128 % (70 - 150)
[2016-08-12 12:04] LABS: PROTEIN S ACTIVITY 118 % (65 - 160)
[2016-08-13 15:13] LABS: INTERPRETATION See Comments
== END 2016-08-10 14:20 | disposition home or self-care (01) | DRG 395 ==
LOC: F1N 17:24 → OBSVTOIN 08-07 14:44 → UNDODISIN 08-08 15:29 → F3E 08-09 11:13
PROVIDERS: ADMIT Internal Medicine; ATTEND Internal Medicine
PROC: 0DB98ZX Excision of Duodenum, Via Natural or Artificial Opening Endoscopic, Diagnostic (ICD-10-PCS; principal; 2016-08-07)
PROC: 0DBG8ZX Excision of Left Large Intestine, Via Natural or Artificial Opening Endoscopic, Diagnostic (ICD-10-PCS; principal; 2016-08-07)
DX: K55.039 Acute (reversible) ischemia of large intestine, extent unspecified (principal); D50.9 Iron deficiency anemia, unspecified
CPT/HCPCS: 81332-90; 81479-90; 85300-90; 85303-90; 85306-90; 86147-90; 96374; G0378; J1170; J2250; J2405; J3010; Q9967